=== PATIENT | male | born 1995 | race Caucasian/White ===

== ENCOUNTER 2018-06-12 00:18 | Observation (INO) | payer SELFPAY, OTHER ==
[2018-06-12] MEDS: ASPIRIN 325 MG TAB PO (00:53)
[2018-06-12 01:04] LABS: ADD MAN DIFF? NO
[2018-06-12 01:07] LABS: BASOPHILS % 0.3 % (0.0-2.0); EOSINOPHILS # 0.1 10^3/ul (0.0-0.5); EOSINOPHILS % 1.1 % (0.0-7.0); HEMOGLOBIN 13.6 g/dl (14.0-18.0); LYMPHOCYTES # 2.2 10^3/ul (0.8-2.9); LYMPHOCYTES % 29.9 % (15.0-51.0); MEAN CORPUSCULAR HEMOGLOBIN 29.2 pg (29.0-33.0); MEAN CORPUSCULAR HGB CONC 33.2 g/dl (32.0-37.0); MEAN PLATELET VOLUME 10.1 fl (7.4-10.4); MONOCYTE # 0.5 10^3/ul (0.3-0.9); MONOCYTES % 6.7 % (0.0-11.0); NEUTROPHIL # 4.4 10^3/ul (1.6-7.5); NEUTROPHILS % 61.6 % (39.0-77.0); PLATELET COUNT 280 10^3/UL (140-415); RED BLOOD COUNT 4.66 10^6/ul (4.70-6.10); RED CELL DISTRIBUTION WIDTH 12.7 % (11.5-14.5)
[2018-06-12 01:07] LABS: WHITE BLOOD COUNT 7.2 10^3/ul (4.8-10.8)
[2018-06-12 01:23] LABS: ALANINE AMINOTRANSFERASE 56 IU/L (13-69); ALKALINE PHOSPHATASE 56 IU/L (42-121); ANION GAP 15 (8-16); ASPARTATE AMINO TRANSFERASE 35 IU/L (15-46); BILIRUBIN,INDIRECT 0.2 mg/dl (0-1.1); BILIRUBIN,TOTAL 0.2 mg/dl (0.2-1.3); BLOOD UREA NITROGEN 15 mg/dl (7-20); CALCIUM 9.7 mg/dl (8.4-10.2); CARBON DIOXIDE 25 mmol/L (21-31); CHLORIDE 104 mmol/L (97-110); CREATININE 0.73 mg/dl (0.61-1.24); GLUCOSE 129 mg/dl (70-220); POTASSIUM 3.4 mmol/L (3.5-5.1); SODIUM 141 mmol/L (135-144); TOTAL PROTEIN 8.4 g/dl (6.1-8.1)
[2018-06-12 01:31] LABS: INR 0.93; PROTIME 12.6 Sec (11.9-14.9)
[2018-06-12 01:32] LABS: PARTIAL THROMBOPLASTIN TIME 27.1 Sec (23.0-35.0)
[2018-06-12 01:34] LABS: TROPONIN-I 0.056 ng/ml (0.000-0.120)
[2018-06-12] MEDS: NICARDipine HCL 30 MG CAPSULE PO (03:08)
[2018-06-12 04:54] LABS: TROPONIN-I 0.065 ng/ml (0.000-0.120)
[2018-06-12] MEDS ORDERED: ONDANSETRON 4 MG TAB PO (05:30)
[2018-06-12] MEDS ORDERED: BISACODYL (EC) 5 MG TAB PO (05:30)
[2018-06-12] MEDS ORDERED: NITROGLYCERIN (SL) 0.4 MG TAB SL (05:30)
[2018-06-12] MEDS ORDERED: morphine 2 MG INJ IV (05:30)
[2018-06-12] MEDS ORDERED: DOCUSATE SODIUM 100 MG CAP PO (05:30)
[2018-06-12] MEDS ORDERED: ACETAMINOPHEN 325 MG TAB PO ×2 (05:30→06:00)
[2018-06-12] MEDS ORDERED: NACL 0.9% 3 ML SYG IV (05:30)
[2018-06-12] MEDS: SOD CHLORIDE 0.9% 1,000 ML IV (05:47)
[2018-06-12] MEDS: POTASSIUM CHLORIDE (SR) 20 MEQ TAB PO (05:47)
[2018-06-12] MEDS ORDERED: ONDANSETRON 4 MG INJ IV (06:00)
[2018-06-12 06:07] LABS: HEMOGLOBIN A1C 5.6 % (0-5.9)
[2018-06-12 06:14] LABS: MAGNESIUM 1.9 mg/dl (1.7-2.5)
[2018-06-12 06:14] LABS: CHOL/HDL RATIO 4.3 RATIO; CHOLESTEROL 168 mg/dl (100-200); HDL CHOLESTEROL 39 mg/dl (30-63); LDL CHOLESTEROL,CALCULATED 62 mg/dl; TRIGLYCERIDES 335 mg/dl (0-149)
[2018-06-12 06:15] LABS: ETHANOL < 10.0 mg/dl
[2018-06-12 06:23] LABS: D-DIMER 320.52 ng/ml (<460)
[2018-06-12 09:13] LABS: CREATINE KINASE 187 IU/L (23-200)
[2018-06-12 09:27] LABS: CK INDEX 1.2; CK-MB 2.28 ng/ml (0.0-2.4); TROPONIN-I 0.054 ng/ml (0.000-0.120)
[2018-06-12 14:03] LABS: CREATINE KINASE 155 IU/L (23-200)
[2018-06-12 14:05] LABS: AMPHETAMINE/METHAMPHETAMINE Negative (NEGATIVE); BARBITURATES Negative (NEGATIVE); BENZODIAZEPINES Negative (NEGATIVE); CANNABINOIDS Negative (NEGATIVE); COCAINE Negative (NEGATIVE); OPIATES Negative (NEGATIVE)
[2018-06-12 14:20] LABS: CK INDEX 1.3; TROPONIN-I 0.059 ng/ml (0.000-0.120)
[2018-06-12] MEDS: AMLODIPINE 10 MG TAB PO (17:16)
== END 2018-06-12 18:25 | disposition home or self-care (01) ==
LOC: FTE 00:18 → 6WM 05:25
DX: R07.9 Chest pain, unspecified (principal); I10 Essential (primary) hypertension; E66.01 Morbid (severe) obesity due to excess calories; Z68.41 Body mass index [BMI] 40.0-44.9, adult
CPT/HCPCS: 36415; 71046; 80053; 80061; 80307; 82550; 82553; 83036; 83735; 84443; 84484; 85025; 85378; 85610; 85730; 93005; 93306; 99285-25; G0378